=== PATIENT | female | born 1995 | race Caucasian/White ===

== ENCOUNTER 2017-02-20 16:06 | Emergency (ER) | payer OTHER ==
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
[2017-02-20 16:58] VITALS: RESP 20; TEMP 98.4
[2017-02-20] MEDS ORDERED: IBUPROFEN 600 MG TAB PO ONE (17:04)
[2017-02-20] MEDS ORDERED: ONDANSETRON 4 MG/2 ML VIAL IVP ONE (18:29)
[2017-02-20] MEDS ORDERED: HYDROCODONE/APAP 5/325 TAB PO ONE (18:29)
[2017-02-20] MEDS ORDERED: HYDROmorphONE/DILAUDID 1 MG/ML INJ IVP ONE (18:37)
[2017-02-20] MEDS ORDERED: HYDROCOD/APAP 5/325 PREPACK#6 BTL TAKEHOME ONE (18:57)
[2017-02-20 19:20] VITALS: BP 101/60; PULSE 91; O2SAT 97
== END 2017-02-20 18:25 | disposition home or self-care (01) ==
DX: S42.022A Displaced fracture of shaft of left clavicle, initial encounter for closed fracture (principal); S06.0X0A Concussion without loss of consciousness, initial encounter; V03.10XA Pedestrian on foot injured in collision with car, pick-up truck or van in traffic accident, initial encounter; Y92.410 Unspecified street and highway as the place of occurrence of the external cause; Y99.8 Other external cause status; Y93.01 Activity, walking, marching and hiking
CPT/HCPCS: 96374; A4565; J1170; J2405

== ENCOUNTER → 2017-06-14 | Outpatient (CLI) | payer OTHER | LOC: FIMAGING 10:57 | PROVIDERS: ATTEND Nurse Practitioner Family | DX: R10.2 Pelvic and perineal pain (principal); N92.6 Irregular menstruation, unspecified ==